=== PATIENT | female | born 1965 | race Caucasian/White ===

== ENCOUNTER 2017-07-21 09:07 | Emergency (ER) | payer BC ==
[~2017-07-21] VITALS: Ht 157.5 cm; Wt 84.0 kg
[~2017-07-21 09:07] MED LIST: OXYC-360 PO; Z.0.NO CURRENT MEDS
[2017-07-21 09:09] VITALS: BP 152/87; PULSE 74; RESP 16; TEMP 98.4; O2SAT 97
[2017-07-21] MEDS ORDERED: ESTR1TAB PO (09:21)
[2017-07-21] MEDS ORDERED: ZOLO25TA PO (09:21)
--- NOTE | 2017-07-21 09:28 | PD ---
HPI Chief Complaint: GI Complaint Time Seen by Provider: 09:14 Travel History International Travel<30 days: No Contact w/Intl Traveler<30days: No Traveled to known affect area: No History of Present Illness HPI 52-year-old female presents with couple month history of dull upper abdominal pain with nonbloody diarrhea. She states this weekend after eating fast food she developed vomiting, chills, diarrhea and worsening upper abdominal pain. She states that she's also had no appetite and has lost weight over the past couple of weeks. Quality is nonbloody. Severity is multiple episodes. Patient states that the vomiting has got better but the pain has not improved. She denies specific modifying factors. She denies any other concurrent complaints. PFSH Past Medical History Blood Disorders: No (N) Cancer: No Diabetes: No Diminished Hearing: No Glaucoma: No Hepatitis: No Hiatal Hernia: No Hypertension: No Kidney Stones: Yes Thyroid Disease: No : 3 Para: 3 Miscarriage: 0 Tubal Ligation: Yes Past Surgical History Section: Yes (2004) Genitourinary Surgery: Yes (CYSTO, STONE EXTRACT.) Gynecologic Surgery: Yes (3 C-SECTIONS) Pacemaker: No Social History Alcohol Use: No Tobacco Use: No Substance Use: No Allergies-Medications (Allergen,Severity, Reaction): Coded Allergies: cefaclor (Unverified Allergy, Severe, Rash, 07/21/17) Reported Meds & Prescriptions Reported Meds & Active Scripts Active Zofran Odt (Ondansetron Odt) 4 Mg Tab 4 Mg SL Q6HR PRN Reported Estradiol 1 Mg Tab 1 Mg PO DAILY Zoloft (Sertraline HCl) 25 Mg Tab 25 Mg PO DAILY Review of Systems Except as stated in HPI: all other systems reviewed are Neg Physical Exam Narrative GENERAL: Well-nourished, well-developed patient. SKIN: Warm and dry. HEAD: Normocephalic and atraumatic. EYES: No injection or drainage. ENT: No nasal drainage noted. NECK: Supple, trachea midline. CARDIOVASCULAR: Regular rate and rhythm RESPIRATORY: Breath sounds equal bilaterally. No accessory muscle use. GASTROINTESTINAL: Abdomen soft, ttp in epigastric area, nondistended. no rebound EXTREMITIES: No edema. NEUROLOGICAL: Awake and alert. Motor and sensory grossly within normal limits. Normal speech. Data Data Last Documented VS Vital Signs Date Time Temp Pulse Resp B/P (MAP) Pulse Ox O2 Delivery O2 Flow Rate FiO2 07/21/17 14:10 66 16 135/66 (89) 97 07/21/17 12:54 Room Air 07/21/17 09:09 98.4 Orders Orders Complete Blood Count With Diff (07/21/17 09:18) Comprehensive Metabolic Panel (07/21/17 09:18) Urinalysis - C+S If Indicated (07/21/17 09:18) Lipase (07/21/17 09:18) Ct Abd/Pel W Iv Contrast(Rout) (07/21/17 ) Iv Access Insert/Monitor (07/21/17 09:18) Sodium Chlorid 0.9% 500 Ml Inj (Ns 500 M (07/21/17 09:30) Ondansetron Inj (Zofran Inj) (07/21/17 09:30) Ketorolac Inj (Toradol Inj) (07/21/17 09:30) Urine Culture (07/21/17 09:25) Iohexol 350 Inj (Omnipaque 350 Inj) (07/21/17 10:31) Us Abdomen Gallbladder (07/21/17 ) Ed Discharge Order (07/21/17 13:31) Labs Laboratory Tests Test 07/21/17 09:25 07/21/17 09:30 Urine Collection Type CLEAN CATCH Urine Color YELLOW Urine Turbidity SLIGHT Urine pH 5.5 Urine Specific Rufus 1.030 Urine Protein 30 mg/dL Urine Glucose (UA) NEG mg/dL Urine Ketones TRACE mg/dL Urine Occult Blood NEG Urine Nitrite NEG Urine Bilirubin NEG Urine Leukocyte Esterase NEG Urine WBC 6-8 /hpf Urine Squamous Epithelial Cells > 8 /hpf Urine Bacteria MANY /hpf Microscopic Urinalysis Comment CULTURE INDICATED Urine Collection Time 09:25 White Blood Count 3.9 TH/MM3 Red Blood Count 4.84 MIL/MM3 Hemoglobin 13.7 GM/DL Hematocrit 41.8 % Mean Corpuscular Volume 86.4 FL Mean Corpuscular Hemoglobin 28.3 PG Mean Corpuscular Hemoglobin Concent 32.7 % Red Cell Distribution Width 11.6 % Platelet Count 299 TH/MM3 Mean Platelet Volume 7.6 FL Neutrophils (%) (Auto) 48.1 % Lymphocytes (%) (Auto) 41.5 % Monocytes (%) (Auto) 7.4 % Eosinophils (%) (Auto) 2.5 % Basophils (%) (Auto) 0.5 % Neutrophils # (Auto) 1.8 TH/MM3 Lymphocytes # (Auto) 1.6 TH/MM3 Monocytes # (Auto) 0.3 TH/MM3 Eosinophils # (Auto) 0.1 TH/MM3 Basophils # (Auto) 0.0 TH/MM3 CBC Comment DIFF FINAL Differential Comment Blood Urea Nitrogen 12 MG/DL Creatinine 0.88 MG/DL Random Glucose 91 MG/DL Total Protein 7.5 GM/DL Albumin 3.6 GM/DL Calcium Level 8.6 MG/DL Alkaline Phosphatase 75 U/L Aspartate Amino Transf (AST/SGOT) 21 U/L Alanine Aminotransferase (ALT/SGPT) 31 U/L Total Bilirubin 0.3 MG/DL Sodium Level 139 MEQ/L Potassium Level 3.7 MEQ/L Chloride Level 107 MEQ/L Carbon Dioxide Level 25.7 MEQ/L Anion Gap 6 MEQ/L Estimat Glomerular Filtration Rate 67 ML/MIN Lipase 177 U/L MDM Medical Decision Making Medical Screen Exam Complete: Yes Emergency Medical Condition: Yes Medical Record Reviewed: Yes (pmh confirmed) Interpretation(s) CBC & BMP Diagram 07/21/17 09:30 Total Protein 7.5, Albumin 3.6, Calcium Level 8.6, Alkaline Phosphatase 75, Aspartate Amino Transf (AST/SGOT) 21, Alanine Aminotransferase (ALT/SGPT) 31, Total Bilirubin 0.3 Last 24 hours Impressions Abdomen/Pelvis CT 07/21/17 0000 Signed Impressions: Service Date/Time: Friday, July 21, 2017 10:28 - CONCLUSION: 1. No acute findings. Calcified gallstone in gallbladder without biliary ductal dilatation. Small umbilical hernia containing fat. Hunter Couch MD gallbladder ultarsound with cholelithasis without cholecystitis when discussed with radiologist, reports states mildly dilated common bile duct, patient given copy for follow-up. Patient has no elevated bilirubin and this is an isolated finding. Patient was given strict return precautions related to this ua appears to be contaminated-will follow culture and call if positive, patient without uti symptoms Differential Diagnosis Gastroenteritis, colitis, cholecystitis, renal failure, electrolyte abnormality Narrative Course Will check blood work, urinalysis, CT scan abdominal pelvis and dose with IV fluids and Zofran and reevaluate CT with gallstones without other findings, given symptoms we'll add on ultrasound and reevaluate ultrasound without cholecystitis findings, symptoms likely related to gallstones , Patient denies any new complaints and states that they are feeling better. no emesis here, Patient happy with care, all questions answered. Patient knows that follow up is incumbent on them and to return to the emergency room immediately if new or worsening symptoms develop. Patient given strict return precautions, vitals reviewed and are normal, agrees to further workup as an outpatient. Diagnosis Primary Impression: Gallstone Qualified Codes: K80.20 - Calculus of gallbladder without cholecystitis without obstruction Additional Impressions: Abdominal pain Qualified Codes: R10.10 - Upper abdominal pain, unspecified Nausea Patient Instructions: General Instructions Additional Instructions: tylenol as needed for pain, zofran as needed for emesis, return as needed, follow with primary this week Med/Other Pt SpecificInfo: Prescription(s) given Scripts Ondansetron Odt (Zofran Odt) 4 Mg Tab 4 MG SL Q6HR Y for Nausea/Vomiting, #15 TAB 0 Refills Prov: Kathy Smith MD 07/21/17 Disposition: 01 DISCHARGE HOME Condition: Stable Kathy Smith MD Jul 21, 2017 09:28
[2017-07-21] MEDS ORDERED: ONDANSETRON HCL 4 MG/2 ML VIAL IV PUSH ONE (09:30)
[2017-07-21] MEDS ORDERED: SODIUM CHLORID 0.9% 500 ML INJ 500 ML IV ONE (09:30)
[2017-07-21] MEDS ORDERED: KETOROLAC TROMETHAMINE 30 MG/ML (IVP) VIAL IV PUSH ONE (09:30)
[2017-07-21 09:40] LABS: BLOOD, URINE NEG (NEG); GLUCOSE,URINE NEG (NEG); KETONE, URINE TRACE mg/dL (NEG); NITRITE,URINE NEG (NEG); PH, URINE 5.5 (5.0-8.5); URINE LEUKOCYTE ESTERASE NEG (NEG)
[2017-07-21 09:42] LABS: AUTOMATED NEUTROPHIL # 1.8 TH/MM3 (1.8-7.7); BASOPHIL % 0.5 % (0.0-2.0); EOSINOPHIL # 0.1 TH/MM3 (0-0.4); EOSINOPHIL % 2.5 % (0.0-4.0); HEMATOCRIT 41.8 % (35.0-46.0); HEMOGLOBIN 13.7 GM/DL (11.6-15.3); LYMPH % 41.5 % (9.0-44.0); LYMPHOCYTE # 1.6 TH/MM3 (1.0-4.8); MEAN CELL VOLUME 86.4 FL (80.0-100.0); MEAN CORPUSCULAR HEMOGLOBIN 28.3 PG (27.0-34.0); MEAN CORPUSCULAR HGB CONC 32.7 % (32.0-36.0); MEAN PLATELET VOLUME 7.6 FL (7.0-11.0); MONO % 7.4 % (0.0-8.0); MONOCYTE # 0.3 TH/MM3 (0-0.9); NEUT % 48.1 % (16.0-70.0); PLATELET COUNT 299 TH/MM3 (150-450); RED BLOOD COUNT 4.84 MIL/MM3 (4.00-5.30); RED CELL DISTRIBUTION WIDTH 11.6 % (11.6-17.2); WHITE BLOOD COUNT 3.9 TH/MM3 (4.0-11.0)
[2017-07-21 09:45] LABS: BILIRUBIN, URINE NEG (NEG); URINE COLOR YELLOW (YELLW/STRAW)
[2017-07-21 09:46] LABS: BACTERIA, URINE MANY /hpf; SQUAMOUS EPITHELIAL CELL URINE > 8 /hpf (0-5)
[2017-07-21 09:55] LABS: CHLORIDE 107 MEQ/L (98-107); SODIUM (NA) 139 MEQ/L (136-145)
[2017-07-21 09:58] LABS: CALCIUM 8.6 MG/DL (8.5-10.1)
[2017-07-21 09:59] LABS: ALBUMIN 3.6 GM/DL (3.4-5.0); BICARBONATE 25.7 MEQ/L (21.0-32.0); BLOOD UREA NITROGEN 12 MG/DL (7-18); GLUCOSE,RANDOM 91 MG/DL (74-106); LIPASE 177 U/L (73-393)
[2017-07-21 10:02] LABS: ALT (GPT) 31 U/L (10-53); AST (GOT) 21 U/L (15-37); CREATININE 0.88 MG/DL (0.50-1.00); GLOMERULAR FILTRATION RATE 67 ML/MIN (>89)
[2017-07-21 10:03] LABS: TOTAL BILIRUBIN ADULT 0.3 MG/DL (0.2-1.0)
[2017-07-21 10:04] LABS: TOTAL PROTEIN 7.5 GM/DL (6.4-8.2)
[2017-07-21 10:05] LABS: ALKALINE PHOSPHATASE 75 U/L (45-117)
[2017-07-21] MEDS ORDERED: IOHEXOL 350 MG/ML 10 ML VIAL (for RAD DIAG) IVCONTRAST ONE (10:31)
--- NOTE | 2017-07-21 10:49 | RADRPT ---
EXAM DATE/TIME: 07/21/2017 10:28 [facility] COMPARISON: No previous studies available for comparison. INDICATIONS : Upper abdominal pain, more so on the right, with diarrhea, vomiting and weight loss. IV CONTRAST: 90 cc Omnipaque 350 (iohexol) IV ORAL CONTRAST: No oral contrast ingested. RADIATION DOSE: 19.69 CTDIvol (mGy) MEDICAL HISTORY : Renal calculi. SURGICAL HISTORY : section. Tubal ligation. ENCOUNTER: Initial ACUITY: 4 - 6 months PAIN SCALE: 5/10 LOCATION: Right upper quadrant abdomen TECHNIQUE: Volumetric scanning of the abdomen and pelvis was performed. Using automated exposure control and ad justment of the mA and/or kV according to patient size, radiation dose was kept as low as reasonably achievable to obtain optimal diagnostic quality images. DICOM format image data is available electro nically for review and comparison. FINDINGS: Lung bases are clear except minimal dependent atelectasis. No significant abnormality in the liver, s pleen, adrenals, kidneys or pancreas. Calcified gallstone in gallbladder. Fat-containing umbilical hernia measuring about 2.8 cm. No bowel incarceration or obstruction. No hal e air or free fluid. No acute bony abnormalities. CONCLUSION: 1. No acute findings. Calcified gallstone in gallbladder without biliary ductal dilatation. Small umb ilical hernia containing fat. Hunter Couch MD on July 21, 2017 at 10:42 Board Certified Radiologist. This report was verified electronically.
[2017-07-21 10:55] VITALS: BP 122/67; PULSE 62; RESP 16; O2SAT 95
[2017-07-21 12:54] VITALS: BP 121/61; PULSE 60; RESP 16; O2SAT 98
[2017-07-21] MEDS ORDERED: ZOFR4TAB3 SL (13:24)
--- NOTE | 2017-07-21 13:24 | RADRPT ---
EXAM DATE/TIME: 07/21/2017 11:08 [facility] COMPARISON: CT ABDOMEN & PELVIS W CONTRAST, July 21, 2017, 10:28. INDICATIONS : Right upper quadrant pain. Gallstones seen on CT scan. MEDICAL HISTORY : Renal calculi. SURGICAL HISTORY : section. Tubal ligation. ENCOUNTER: Subsequent ACUITY: 4-6 months PAIN SCORE: 2/10 LOCATION: Right upper quadrant MEASUREMENTS: LIVER: 17.4 cm length COMMON DUCT: 8 mm RIGHT KIDNEY: 11.0 x 4.9 x 5.8 cm FINDINGS: LIVER: Normal echotexture without focal lesion or ductal dilatation. COMMON DUCT: No intraluminal mass or stone visualized. GALLBLADDER: One single shadowing gallstone in the gallbladder which otherwise appears unremarkable. No significan t abnormal thickening, pericholecystic fluid or sonographic Rocha sign. PANCREAS: The visualized portions are within normal limits. RIGHT KIDNEY: No evidence of hydronephrosis, stone, or mass. CONCLUSION: 1. Cholelithiasis. 2. Slightly prominent common bile duct without stone in the visualized portions. Can not exclude a di stal partial CBD obstruction although this is unlikely given lack of intrahepatic ductal dilatation a nd only mild CBD dilatation. 3. Mild hepatomegaly. Neil Spring MD on July 21, 2017 at 11:29 Board Certified Radiologist. This report was verified electronically.
[2017-07-21 14:10] VITALS: BP 135/66
== END 2017-07-21 14:14 | disposition home or self-care (01) ==
LOC: PHED 09:07
DX: K80.20 Calculus of gallbladder without cholecystitis without obstruction (principal); K42.9 Umbilical hernia without obstruction or gangrene
CPT/HCPCS: 74177; 76705; 80053; 81001; 83690; 85025; 87086; 96361; 96374; 96375; 99285; J1885; J2405; J7040; Q9967